=== PATIENT | female | born 1970 | race Caucasian/White ===

== ENCOUNTER → 2018-10-29 | Outpatient (CLI) | payer OTHER ==
--- NOTE | 2018-10-29 15:10 | XR ---
Lumbar spine HISTORY: Trauma and pain 3 views of the lumbar spine Lumbar vertebral bodies show preserved height and alignment. There is loss of disc height at interver tebral levels especially L4-5, there is associated spondylosis. Sclerosis present in the posterior el ements. IMPRESSION: No acute fracture or subluxation. Degenerative disc disease. Lumbar MRI may benefit.
== END | disposition home or self-care (01) ==
LOC: RADXRMAIN 13:03
PROVIDERS: ATTEND Emergency Medicine
DX: M51.36 Other intervertebral disc degeneration, lumbar region (principal)
CPT/HCPCS: 72100

== ENCOUNTER 2020-07-24 21:27 | Inpatient (IN) | payer OTHER ==
[2020-07-24] MEDS ORDERED: SODIUM CHLORIDE 0.9% 1,000 ML IV ONE (22:21)
[2020-07-24] MEDS ORDERED: METOCLOPRAMIDE 5 MG/ML 2 ML VIAL IVP STA (22:23)
[2020-07-24] MEDS ORDERED: diphenhydrAMINE 50 MG/ML 1 ML VIAL IVP STA (22:23)
[2020-07-24] MEDS ORDERED: MAGNESIUM SULFATE-D5W PMX 1 GM in DEXTROSE/WATER 1 100ML.BAG IVPB ONE (22:24)
[2020-07-24] MEDS ORDERED: DEXAMETHASONE SOD PHOSPHATE 10 MG/ML 1 ML VIAL IV STA (22:24)
--- NOTE | 2020-07-24 22:24 | ED ---
General Adult HPI - General Chief complaint: Altered Mental Status Stated complaint: Confusion, Headache Time Seen by Provider: 07/24/20 21:40 Source: patient Mode of arrival: ambulatory Limitations: altered mental status - History of Present Illness Initial comments: Patient is a 49-year-old female with no reported past medical history presents to the emergency department with reported confusion. Her 2 sisters are at bedside. They state that the patient was acting confused on . The patient then reports that on Saturday she began having a headache. Today the patient sisters attempted to get a hold of her. Over the phone she did not seem like she was making any sense. They went over to her house around 2 PM and the patient had repetitive and confused questioning. They state this continued throughout the day and he didn't think to bring her to the emergency department until later. No history of this in the past. The patient denies any head trauma. She does not take any medications. Denies taking any over the counter medications. No history of drug use. Denies any fevers or chills. No neck pain or stiffness. Denies any visual changes. Denies any nausea or vomiting. No chest pain or shortness of breath. Denies abdominal pain. No weakness in her extremities. No other alleviating, precipitating or modifying factors - Related Data Previous Rx's Medication Instructions Recorded Aspirin 81 mg PO DAILY 30 Days #30 chew 07/28/20 Atorvastatin [Lipitor] 40 mg PO DAILY 30 Days #30 tab 07/28/20 Clopidogrel [Plavix] 75 mg PO DAILY 30 Days #30 tab 07/28/20 Insulin NPH Hum/Reg Insulin Hm 15 unit SQ HS 30 Days #2 vial 07/28/20 [NovoLIN 70-30 100 UNIT/ML VIAL] lisinopriL [Zestril] 10 mg PO DAILY 30 Days #30 tab 07/28/20 Allergies Allergy/AdvReac Type Severity Reaction Status Date / Time No Known Allergies Allergy Verified 07/25/20 06:37 Review of Systems ROS Statement: Those systems with pertinent positive or pertinent negative responses have been documented in the HPI. ROS Other: All systems not noted in ROS Statement are negative. Past Medical History Past Medical History: No Reported History History of Any Multi-Drug Resistant Organisms: None Reported Past Surgical History: No Surgical Hx Reported Past Psychological History: No Psychological Hx Reported Smoking Status: Current every day smoker Past Alcohol Use History: None Reported Past Drug Use History: None Reported General Exam Limitations: altered mental status General appearance: alert, in no apparent distress Head exam: Present: atraumatic, normocephalic, normal inspection Eye exam: Present: normal appearance, PERRL, EOMI. Absent: scleral icterus, conjunctival injection, periorbital swelling ENT exam: Present: normal exam, mucous membranes moist Respiratory exam: Present: normal lung sounds bilaterally. Absent: respiratory distress, wheezes, rales, rhonchi, stridor Cardiovascular Exam: Present: regular rate, normal rhythm, normal heart sounds. Absent: systolic murmur, diastolic murmur, rubs, gallop, clicks GI/Abdominal exam: Present: soft, normal bowel sounds. Absent: distended, tenderness, guarding, rebound, rigid Extremities exam: Present: normal inspection, full ROM, normal capillary refill. Absent: tenderness, pedal edema, joint swelling, calf tenderness Back exam: Present: normal inspection Neurological exam: Present: alert, other (oriented x 2. Intermittent confused re sponses. No unilateral weakness or sensory deficits. No dysarthria or expressive aphasia. ) Course Vital Signs 07/24/20 07/24/20 07/25/20 21:37 22:42 00:35 Temperature 98.5 F 98.0 F 98.0 F Pulse Rate 80 72 72 Pulse Rate [ Egg Smeller ] Respiratory 18 16 16 Rate Blood Pressure 192/82 186/78 183/79 Blood Pressure [Left Arm] O2 Sat by Pulse 97 98 96 Oximetry 07/25/20 07/25/20 07/25/20 04:00 06:45 08:00 Temperature 98.4 F 98.7 F 98 F Pulse Rate 75 86 Pulse Rate [ 90 Egg Smeller ] Respiratory 16 16 17 Rate Blood Pressure 146/82 155/77 Blood Pressure 181/102 [Left Arm] O2 Sat by Pulse 98 94 L Oximetry 07/25/20 07/25/20 12:30 16:00 Temperature Pulse Rate Pulse Rate [ 82 71 Egg Smeller ] Respiratory 18 18 Rate Blood Pressure Blood Pressure 151/111 165/116 [Left Arm] O2 Sat by Pulse 97 98 Oximetry - Reevaluation(s) Reevaluation #1: 07/25/20 00:[address] Reynoso Reevaluation #2: Spoke with Dr. Hill. Will look at images 07/25/20 00:59 Reevaluation #3: Spoke with Dr. Hill - agrees to aspirin, heparin, plavix, echo, mri with neurology consult 07/25/20 01:22 EKG Findings - EKG Comments: EKG Findings:: EKG demonstrates normal sinus rhythm with a ventricular rate 75. VT interval 154. QRS 88. QTC 446. No acute ST segment elevations or depressions concerning for ischemic changes Medical Decision Making - Medical Decision Making Upon arrival the patient was placed into room 11. A thorough history and physical exam was performed. Patient does not answer questions appropriate and therefore receives a score of 2 on NIH. Patient did demonstrate normal behavior on and therefore last known well is 4 days ago. Laboratory studies were conducted and the patient went for a CT of her brain. Chest x-ray was also performed. Laboratory studies are reviewed and demonstrates a glucose of 245. Urinalysis is positive for large leukocyte esterase and rare bacteria. CT of the patient's brain demonstrates a left posterior temporal lobe hypodensity consistent with acute or subacute infarct. I did discuss these results with the patient. She was given an aspirin and statin. I did send her back over for CT angiography which demonstrates moderate stenosis of the proximal M1 segment of the left MCA. I discussed the results with the patient and her family at bedside. I had Dr. Hill paged at this time. I discussed the case with him. He does recommend aspirin, Plavix and statin. States the patient has not a thrombectomy candidate. Recommending echo and neurology consultation. Patient will be admitted to [facility]. She remained in stable condition awaiting a bed on the floor - Lab Data Result diagrams: 07/28/20 09:35 07/28/20 09:35 Lab Results 07/24/20 07/24/20 07/24/20 Range/Units 22:36 22:36 22:36 WBC 8.6 (3.8-10.6) k/uL RBC 5.93 H (3.80-5.40) m/uL Hgb 16.4 H (11.4-16.0) gm/dL Hct 48.5 H (34.0-46.0) % MCV 81.8 (80.0-100.0) fL MCH 27.7 (25.0-35.0) pg MCHC 33.9 (31.0-37.0) g/dL RDW 12.8 (11.5-15.5) % Plt Count 215 (150-450) k/uL MPV 7.4 Neutrophils % 73 % Lymphocytes % 18 % Monocytes % 5 % Eosinophils % 2 % Basophils % 1 % Neutrophils # 6.3 (1.3-7.7) k/uL Lymphocytes # 1.5 (1.0-4.8) k/uL Monocytes # 0.4 (0-1.0) k/uL Eosinophils # 0.2 (0-0.7) k/uL Basophils # 0.1 (0-0.2) k/uL PT 9.8 (9.0-12.0) sec INR 0.9 (<1.2) APTT 23.5 (22.0-30.0) sec Sodium (137-145) mmol/L Potassium (3.5-5.1) mmol/L Chloride (98-107) mmol/L Carbon Dioxide (22-30) mmol/L Anion Gap mmol/L BUN (7-17) mg/dL Creatinine (0.52-1.04) mg/dL Est GFR (CKD-EPI)AfAm (>60 ml/min/1.73 sqM) Est GFR (CKD-EPI)NonAf (>60 ml/min/1.73 sqM) Glucose (74-99) mg/dL Estimated Ave Glu mg/dL Hemoglobin A1c (4.0-6.0) % Calcium (8.4-10.2) mg/dL Total Bilirubin (0.2-1.3) mg/dL AST (14-36) U/L ALT (4-34) U/L Alkaline Phosphatase (38-126) U/L Creatine Kinase (30-135) U/L Troponin I (0.000-0.034) ng/mL Total Protein (6.3-8.2) g/dL Albumin (3.5-5.0) g/dL TSH (0.465-4.680) mIU/L Urine Color Yellow Urine Appearance Cloudy H (Clear) Urine pH 6.0 (5.0-8.0) Ur Specific Liscomb 1.029 (1.001-1.035) Urine Protein Trace H (Negative) Urine Glucose (UA) 3+ H (Negative) Urine Ketones Negative (Negative) Urine Blood Trace H (Negative) Urine Nitrite Negative (Negative) Urine Bilirubin Negative (Negative) Urine Urobilinogen 2.0 (<2.0) mg/dL Ur Leukocyte Esterase Large H (Negative) Urine RBC 6 H (0-5) /hpf Urine WBC 7 H (0-5) /hpf Ur Squamous Epith Cells 5 H (0-4) /hpf Urine Bacteria Rare H (None) /hpf Urine Mucus Many H (None) /hpf Salicylates mg/dL Urine Opiates Screen Not Detected (NotDetected) Ur Oxycodone Screen Not Detected (NotDetected) Urine Methadone Screen Not Detected (NotDetected) Ur Propoxyphene Screen Not Detected (NotDetected) Acetaminophen ug/mL Ur Barbiturates Screen Not Detected (NotDetected) U Tricyclic Antidepress Not Detected (NotDetected) Ur Phencyclidine Scrn Not Detected (NotDetected) Ur Amphetamines Screen Not Detected (NotDetected) U Methamphetamines Scrn Not Detected (NotDetected) U Benzodiazepines Scrn Not Detected (NotDetected) Urine Cocaine Screen Not Detected (NotDetected) U Marijuana (THC) Screen Not Detected (NotDetected) Serum Alcohol mg/dL 07/24/20 07/24/20 07/24/20 Range/Units 22:36 22:36 22:36 WBC (3.8-10.6) k/uL RBC (3.80-5.40) m/uL Hgb (11.4-16.0) gm/dL Hct (34.0-46.0) % MCV (80.0-100.0) fL MCH (25.0-35.0) pg MCHC (31.0-37.0) g/dL RDW (11.5-15.5) % Plt Count (150-450) k/uL MPV Neutrophils % % Lymphocytes % % Monocytes % % Eosinophils % % Basophils % % Neutrophils # (1.3-7.7) k/uL Lymphocytes # (1.0-4.8) k/uL Monocytes # (0-1.0) k/uL Eosinophils # (0-0.7) k/uL Basophils # (0-0.2) k/uL PT (9.0-12.0) sec INR (<1.2) APTT (22.0-30.0) sec Sodium 132 L (137-145) mmol/L Potassium 4.2 (3.5-5.1) mmol/L Chloride 106 (98-107) mmol/L Carbon Dioxide 22 (22-30) mmol/L Anion Gap 4 mmol/L BUN 11 (7-17) mg/dL Creatinine 0.45 L (0.52-1.04) mg/dL Est GFR (CKD-EPI)AfAm >90 (>60 ml/min/1.73 sqM) Est GFR (CKD-EPI)NonAf >90 (>60 ml/min/1.73 sqM) Glucose 245 H (74-99) mg/dL Estimated Ave Glu mg/dL 292 Hemoglobin A1c 11.8 H (4.0-6.0) % Calcium 9.0 (8.4-10.2) mg/dL Total Bilirubin 0.7 (0.2-1.3) mg/dL AST 21 (14-36) U/L ALT 25 (4-34) U/L Alkaline Phosphatase 113 (38-126) U/L Creatine Kinase 67 (30-135) U/L Troponin I <0.012 (0.000-0.034) ng/mL Total Protein 6.4 (6.3-8.2) g/dL Albumin 3.7 (3.5-5.0) g/dL TSH 1.760 (0.465-4.680) mIU/L Urine Color Urine Appearance (Clear) Urine pH (5.0-8.0) Ur Specific Liscomb (1.001-1.035) Urine Protein (Negative) Urine Glucose (UA) (Negative) Urine Ketones (Negative) Urine Blood (Negative) Urine Nitrite (Negative) Urine Bilirubin (Negative) Urine Urobilinogen (<2.0) mg/dL Ur Leukocyte Esterase (Negative) Urine RBC (0-5) /hpf Urine WBC (0-5) /hpf Ur Squamous Epith Cells (0-4) /hpf Urine Bacteria (None) /hpf Urine Mucus (None) /hpf Salicylates <1.0 mg/dL Urine Opiates Screen (NotDetected) Ur Oxycodone Screen (NotDetected) Urine Methadone Screen (NotDetected) Ur Propoxyphene Screen (NotDetected) Acetaminophen <10.0 ug/mL Ur Barbiturates Screen (NotDetected) U Tricyclic Antidepress (NotDetected) Ur Phencyclidine Scrn (NotDetected) Ur Amphetamines Screen (NotDetected) U Methamphetamines Scrn (NotDetected) U Benzodiazepines Scrn (NotDetected) Urine Cocaine Screen (NotDetected) U Marijuana (THC) Screen (NotDetected) Serum Alcohol <10 mg/dL Critical Care Time Critical Care Time: Yes Critical Care Time: 32 minutes Disposition Clinical Impression: Altered mental status, CVA (cerebral vascular accident), Hyperglycemia, Hypertension Disposition: ADMITTED IP TO THIS [facility] Condition: Serious Is patient prescribed a controlled substance at d/c from ED?: No Decision to Admit Reason: Admit from EC Decision Date: 07/25/20 Decision Time: 00:26
[2020-07-24 23:14] LABS: Basophils # (A) 0.1 k/uL (0-0.2); Basophils % (A) 1 %; Eosinophils # (A) 0.2 k/uL (0-0.7); Eosinophils % (A) 2 %; HCT 48.5 % (34.0-46.0); HGB 16.4 gm/dL (11.4-16.0); Lymphocytes # (A) 1.5 k/uL (1.0-4.8); Lymphocytes % (A) 18 %; MCH 27.7 pg (25.0-35.0); MCHC 33.9 g/dL (31.0-37.0); MCV 81.8 fL (80.0-100.0); Mean Platelet Volume 7.4; Monocytes # (A) 0.4 k/uL (0-1.0); Monocytes % (A) 5 %; Neutrophils # (A) 6.3 k/uL (1.3-7.7); Neutrophils % (A) 73 %; Platelet Count 215 k/uL (150-450); RBC 5.93 m/uL (3.80-5.40); RDW 12.8 % (11.5-15.5); WBC 8.6 k/uL (3.8-10.6)
[2020-07-24 23:15] LABS: INR 0.9 (<1.2); Partial Thromboplastin Time 23.5 sec (22.0-30.0); Prothrombin Time 9.8 sec (9.0-12.0)
[2020-07-24 23:22] LABS: ALT 25 U/L (4-34); AST 21 U/L (14-36); Acetaminophen <10.0 ug/mL; African American GFR (CKD) >90 (>60 ml/min/1.73 sqM); Albumin 3.7 g/dL (3.5-5.0); Alcohol <10 mg/dL; Alkaline Phosphatase 113 U/L (38-126); Anion Gap 4 mmol/L; Blood Urea Nitrogen 11 mg/dL (7-17); Carbon Dioxide 22 mmol/L (22-30); Chloride 106 mmol/L (98-107); Creatine Kinase 67 U/L (30-135); Glucose 245 mg/dL (74-99); Non-African American GFR(CKD) >90 (>60 ml/min/1.73 sqM); Potassium 4.2 mmol/L (3.5-5.1); Salicylate <1.0 mg/dL; Sodium 132 mmol/L (137-145); Total Bilirubin 0.7 mg/dL (0.2-1.3); Total Protein 6.4 g/dL (6.3-8.2)
[2020-07-24 23:23] LABS: Appearance,Urine Cloudy (Clear); Bacteria,Urine Rare /hpf; Bilirubin,Urine Negative (Negative); Blood,Urine Trace (Negative); Color,Urine Yellow; Glucose,Urine (UA) 3+ (Negative); Ketones,Urine Negative (Negative); Leukocyte Esterase,Urine Large (Negative); Mucus,Urine Many /hpf; Nitrite,Urine Negative (Negative); Protein,Urine Trace (Negative); RBC,Urine 6 /hpf (0-5); Specific Gravity,Urine 1.029 (1.001-1.035); Squamous Epithelial Cell,Urine 5 /hpf (0-4); WBC,Urine 7 /hpf (0-5)
[2020-07-24 23:24] LABS: Amphetamine Screen,Urine Not Detected (NotDetected); Barbiturate Screen,Urine Not Detected (NotDetected); Benzodiazepines Screen,Urine Not Detected (NotDetected); Cocaine Screen,Urine Not Detected (NotDetected); Methadone Screen, Urine Not Detected (NotDetected); Opiate Screen,Urine Not Detected (NotDetected); Oxycodone Screen, Urine Not Detected (NotDetected); Phencyclidine Screen,Urine Not Detected (NotDetected); Tricyclic Antidepressant,Urine Not Detected (NotDetected); Urn Cannabinoid Scrn Not Detected (NotDetected)
--- NOTE | 2020-07-24 23:31 | XR ---
EXAMINATION TYPE: XR chest 2V DATE OF EXAM: 07/24/2020 COMPARISON: NONE HISTORY: Altered mental status TECHNIQUE: FINDINGS: Heart is normal. Lungs are clear of consolidation. There are no hilar masses. There is coar sening of the interstitial markings. There is no pleural effusion. IMPRESSION: Coarse lung markings with poor inspiration. Minimal interstitial pneumonia is possible. N ormal heart. No heart failure.
--- NOTE | 2020-07-24 23:33 | CT ---
EXAMINATION TYPE: CT brain wo con DATE OF EXAM: 07/24/2020 COMPARISON: None HISTORY: AMS CT DLP: 1019.4 mGycm Automated exposure control for dose reduction was used. Ventricles have normal size. There is no midline shift. There is no sign of intracranial hemorrhage. There is triangular-shaped 4 cm area of hypodensity left posterior temporal lobe consistent with acut e or subacute infarct. The calvarium is intact. The skull base is intact. There is normal aeration of the mastoid sinuses. IMPRESSION: Left posterior temporal lobe hypodensity consistent with acute or subacute ischemic infarct. No hemor rhage.
[2020-07-24] MEDS ORDERED: ASPIRIN 325 MG TAB PO STA (23:59)
--- NOTE | 2020-07-25 00:36 | CT ---
EXAM: CT Angiography Head With Intravenous Contrast CLINICAL HISTORY: ITS.REASON CT Reason: stroke TECHNIQUE: Axial computed tomographic angiography images of the head with intravenous contrast. CTDI is 10.67 mGy and DLP is 300 mGy-cm. This CT exam was performed using one or more of the following dose reduction techniques: automated exposure control, adjustment of the mA and/or kV according to patient size, and/or use of iterative reconstruction technique. MIP reconstructed images were created and reviewed. COMPARISON: CT head 07/24/20 FINDINGS: Right internal carotid artery: No acute findings. Intracranial segment is patent with no significant stenosis. No aneurysm. Right anterior cerebral artery: Unremarkable. No occlusion or significant stenosis. No aneurysm. Right middle cerebral artery: Unremarkable. No occlusion or significant stenosis. No aneurysm. Right posterior cerebral artery: Unremarkable. No occlusion or significant stenosis. No aneurysm. Right vertebral artery: Unremarkable as visualized. Left internal carotid artery: No acute findings. Intracranial segment is patent with no significant stenosis. No aneurysm. Left anterior cerebral artery: Unremarkable. No occlusion or significant stenosis. No aneurysm. Left middle cerebral artery: Moderate stenosis of the proximal M1 segment of the left MCA. No aneurysm. Left posterior cerebral artery: Unremarkable. No occlusion or significant stenosis. No aneurysm. Left vertebral artery: Unremarkable as visualized. Basilar artery: Unremarkable. No occlusion or significant stenosis. No aneurysm. Brain: Redemonstrated left parietal lobe hypodensity compatible with acute/subacute infarct. IMPRESSION: 1. Moderate stenosis of the proximal M1 segment of the left MCA. 2. Otherwise patent intracranial circulation. 3. Redemonstrated acute/subacute left parietal lobe infarct. EXAM: CT Angiography Neck With Intravenous Contrast CLINICAL HISTORY: ITS.REASON CT Reason: stroke TECHNIQUE: Axial computed tomographic angiography images of the neck with intravenous contrast. CTDI is 10 mGy and DLP is 312.8 mGy-cm. This CT exam was performed using one or more of the following dose reduction techniques: automated exposure control, adjustment of the mA and/or kV according to patient size, and/or use of iterative reconstruction technique. MIP reconstructed images were created and reviewed. COMPARISON: No relevant prior studies available. FINDINGS: VASCULATURE: Right common carotid artery: Unremarkable. No significant stenosis. No dissection or occlusion. Right internal carotid artery: Medialization of the right internal carotid artery. Extracranial segment is patent with no significant stenosis. No dissection or occlusion. Right external carotid artery: Unremarkable. No occlusion. Right vertebral artery: Unremarkable. No significant stenosis. No dissection or occlusion. Left common carotid artery: Unremarkable. No significant stenosis. No dissection or occlusion. Left internal carotid artery: Medialization of the left internal carotid artery. Extracranial segment is patent with no significant stenosis. No dissection or occlusion. Left external carotid artery: Unremarkable. No occlusion. Left vertebral artery: Unremarkable. No significant stenosis. No dissection or occlusion. NECK: Bones/joints: No acute osseous findings. No dislocation. Soft tissues: Unremarkable soft tissues of the neck. No mass. Lung apices: Clear lung apices. CAROTID STENOSIS REFERENCE USING NASCET CRITERIA: % ICA stenosis = (1 - narrowest ICA diameter/diameter of distal cervical ICA) x 100. Mild - <50% stenosis. Moderate - 50-69% stenosis. Severe - 70-94% stenosis. Near occlusion - 95-99% stenosis. Occluded - 100% stenosis. IMPRESSION: No acute findings in the arteries of the neck.
[2020-07-25 01:06] LABS: Glucose,Whole Blood 258 mg/dL (75-99)
[2020-07-25] MEDS ORDERED: INSULIN ASPART (NovoLOG) 100 UNIT/ML VIAL SQ ONE (01:22)
[2020-07-25] MEDS: CLOPIDOGREL 75 MG TAB PO SCH ×2 (01:43→09:27)
[2020-07-25 09:14] LABS: Glucose,Whole Blood 269 mg/dL (75-99)
[2020-07-25] MEDS: INSULIN ASPART (NovoLOG) 100 UNIT/ML VIAL SQ SCH ×4 (09:27→20:47)
[2020-07-25] MEDS: ATORVASTATIN 40 MG TAB PO SCH (09:27)
--- NOTE | 2020-07-25 12:00 | ECHOF ---
Referral Reason:Thrombus MEASUREMENTS -------- HEIGHT: 152.4 cm WEIGHT: 91.2 kg BP: RVIDd: 2.5 cm (< 3.3) IVSd: 1.1 cm (0.6 - 1.1) LVIDd: 4.4 cm (3.9 - 5.3) LVPWd: 1.2 cm (0.6 - 1.1) IVSs: 1.6 cm LVIDs: 2.5 cm LVPWs: 1.4 cm Ao Diam: 2.4 cm (2.0 - 3.7) MV EXCURSION: 15.271 mm (> 18.000) MV EF SLOPE: 92 mm/s (70 - 150) EPSS: 0.1 cm MV E Srikanth: 0.59 m/s MV DecT: 177 ms MV A Sriknath: 0.71 m/s MV E/A Ratio: 0.83 RAP: 5.00 mmHg RVSP: 12.23 mmHg FINDINGS -------- Sinus rhythm. This was a techncally difficult study with suboptimal views, , Lumason utilized for enhancement of im ages. The left ventricular size is normal. There is mild concentric left ventricular hypertrophy. Overa ll left ventricular systolic function is normal with, an EF between 55 - 60 %. The right ventricle is normal in size. The left atrial size is normal. The right atrial size is normal. The aortic valve was not well visualized. The mitral valve is normal. Mild mitral regurgitation is present. The tricuspid valve appears structurally normal. Mild tricuspid regurgitation present. Right vent ricular systolic pressure is normal at < 35 mmHg. The pulmonic valve was not well visualized. The aortic root size is normal. There is no pericardial effusion. CONCLUSIONS -------- 1. This was a techncally difficult study with suboptimal views, , Lumason utilized for enhancement of images. 2. There is mild concentric left ventricular hypertrophy. 3. Overall left ventricular systolic function is normal with, an EF between 55 - 60 %. 4. The left atrial size is normal. 5. The aortic valve was not well visualized. 6. Mild mitral regurgitation is present. 7. Mild tricuspid regurgitation present. 8. There is no pericardial effusion. JEWEL SETTER: Nicole May RDCS
[2020-07-25 12:30] LABS: Hemoglobin A1C 11.8 % (4.0-6.0)
[2020-07-25 13:20] LABS: Glucose,Whole Blood 310 mg/dL (75-99)
[2020-07-25] MEDS ORDERED: LORazepam 2 MG/ML INJ IV PRN (13:50)
[2020-07-25] MEDS ORDERED: TEMAZEPAM 15 MG CAP PO PRN (13:50)
[2020-07-25] MEDS ORDERED: HYDROcodone/APAP 5-325MG 1 EACH TAB PO PRN (13:50)
--- NOTE | 2020-07-25 14:46 | P.CNNES ---
History of Present Illness Consult date: 07/25/20 Requesting physician: Manda Hernandez Reason for Consult: Stroke seen on CT head: left temporal History of Present Illness: This is a 49-year-old woman with no medical history that presented to the emergency department on 07/24/2020 at around 21:27 for confusion. Patient is unable to provide history because of the her a fees via therefore history was obtained by the patient's sister was at bedside. Per the patient's sister on the 2019 the patient was complaining of headache but the the sister does not know where the headache was she was the the patient was just complaining of a headache. No nausea no vomiting. Then on 07/24/2020 around 1 PM the patient was having difficulty getting her words out, repeating herself and that seemed confused for the sister. Last normal seen was around 07/24/2020 at 12:05 AM. Patient does not have any similar episodes in the past like this. Per the sister she just having difficulty getting her words out and the she didn't notice any weakness. There is no head trauma recently. She does smoke 1 pack a day for the last 30 years. Rarely drinks alcohol. She sees primary care physician time to time. Otherwise she is not on any medication because she doesn't see a physician for the most part. She's also been on any [id number] medication. Mother does have history of stroke at the age of 52 because of atrial fibrillation. Upon seeing the patient the patient just frustrated that she can get her words out. Workup in the hospital consisted of: Initial vitals: Blood pressure of 192/82, heart rate of 80, respiratory of 18, temperature of 98.5 Fahrenheit oral and pulse ox of 97% at room air. CT of the head was reported as left posterior temporal lobe hypodensity consistent with acute or subacute ischemic infarct. No hemorrhage. I personally reviewed that a CT of the head and I felt the hypodensity was more subacute. CT angiography of the head and neck is reported as: No acute finding in the arteries of the neck. While the CT of the head was reported as moderate stenosis of the proximal M1 segment of the left MCA. Otherwise patient intracr anial circulation. Redemonstrated acute/subacute left parietal lobe infarct. EKG was reported as normal sinus rhythm. Ventricle rate of 75. Normal EKG. Patient received NIH of a 2 in the ED for not answering questions appropriately. Patient did not receive TPA since that she was outside the window. The ED spoke with the stroke team (Dr. Hill) and he did not feel that the patient that was a candidate for thrombectomy. He recommended aspirin, Plavix and statin. 2-D echo was reported as mild concentric left ventricular hypertrophy. Ejection fraction between 55 and 50%. Left atrial size is normal. CXR: Course lung marking with poor inspiration. Minimal insertional pneumonia as possible. Normal heart. Normal heart failure. Review of Systems Review of system is limited because of patient condition but the prone positive and negative as per HPI. Past Medical History Past Medical History: No Reported History History of Any Multi-Drug Resistant Organisms: None Reported Past Surgical History: No Surgical Hx Reported Past Psychological History: No Psychological Hx Reported Smoking Status: Current every day smoker Past Alcohol Use History: None Reported Past Drug Use History: None Reported Medications and Allergies Home Medications Medication Instructions Recorded Confirmed Type No Known Home Medications 07/25/20 07/25/20 History Allergies Allergy/AdvReac Type Severity Reaction Status Date / Time No Known Allergies Allergy Verified 07/25/20 06:37 Physical Examination - Vital Signs Vital Signs: Vital Signs Temp Pulse Pulse Resp BP BP Pulse Ox 07/25/20 08:00 98 F 90 17 181/102 94 L 07/25/20 06:45 98.7 F 86 16 155/77 07/25/20 04:00 98.4 F 75 16 146/82 98 07/25/20 00:35 98.0 F 72 16 183/79 96 07/24/20 22:42 98.0 F 72 16 186/78 98 07/24/20 21:37 98.5 F 80 18 192/82 97 Intake and Output 07/24/20 07/25/20 07/25/20 22:59 06:59 14:59 Other: Weight 91.716 kg 91.716 kg GENERAL: The patient is lying in bed and frustrated with her condition. CHEST: The heart rate is regular rate rhythm. No murmurs to auscultation. No carotid bruit bilaterally. LUNG: Clear to auscultation bilaterally no wheezing noted throughout. Not labored breathing. ABDOMEN/GI: Bowel sounds present in all 4 quadrants. No tenderness to palpation throughout. NEUROLOGICAL: Limited because of her cooperation. Higher mental function: The patient is awake, alert, oriented to self. Had a hard time getting answers regarding the the place and time. Patient is able to identify objects such as a cup but upon showed her my watch she stated this time and upon asking her a different objects such as a pen she said it's time. Patient has a predominantly motor aphasia. Has paraphasic error as well as preservation. No neglect. Cranial nerves: The pupils are round, equal, 3-4mm and reactive to light. Visual quinn could not assess because of patient's cooperation. Extraocular movement is intact no nystagmus is noted. The facial strength is normal throughout. Tongue is midline and moved [id number] without any difficulty. No dysarthria is noted. Shoulder shrug is normal bilaterally. Motor: Gait is normal with normal arm swings. The strength is 5 over 5 throughout. Normal tone and bulk. Cerebellum: Normal finger to nose bilaterally. Sensation: Sensation is normal to touch throughout. Reflexes (right/left): 2+ throughout except ankles could not assess because patient's refusal to remove her shoes. Plantars: Unable to assess because refusal to remove her shoes. Results Sodium was 132. POC glucose is in the range of 250s to 310. Hemoglobin A1c is 11.8. Calcium Zyprexa 0. AST is 21 and ALTs 25. TSH is 1.76. Urine drug screen was negative and a serum alcohol was less than 10 the barbiturates was less than 10 salicylate was less than 1. Urine analysis the urine looks appears cloudy, nitrate was negative, leukocyte esterase large urine white blood cell is 7 urine bacteria was rare. - Laboratory Findings CBC and BMP: 07/24/20 22:36 07/24/20 22:36 Abnormal Lab Findings: Abnormal Labs 07/24/20 07/24/20 07/24/20 22:36 22:36 22:36 RBC 5.93 H Hgb 16.4 H Hct 48.5 H Sodium 132 L Creatinine 0.45 L Glucose 245 H POC Glucose (mg/dL) Hemoglobin A1c Urine Appearance Cloudy H Urine Protein Trace H Urine Glucose (UA) 3+ H Urine Blood Trace H Ur Leukocyte Esterase Large H Urine RBC 6 H Urine WBC 7 H Ur Squamous Epith Cells 5 H Urine Bacteria Rare H Urine Mucus Many H 07/24/20 07/25/20 07/25/20 22:36 01:04 09:12 RBC Hgb Hct Sodium Creatinine Glucose POC Glucose (mg/dL) 258 H 269 H Hemoglobin A1c 11.8 H Urine Appearance Urine Protein Urine Glucose (UA) Urine Blood Ur Leukocyte Esterase Urine RBC Urine WBC Ur Squamous Epith Cells Urine Bacteria Urine Mucus Assessment and Plan Assessment: This a 49-year-old woman with no medical history that presented to the emergency department on 07/24/2020 at around 21:27 repeating herself, not making sense since 07/24/2020 noticed by family at 1pm (last normal seen was on 07/24/20 at 12:05am). NIH of a 2 on presented to the hospital for not answering questions appropriately. Patient did not receive IV TPA since outside the window. CT of the head was reported as moderate stenosis of the proximal M1 segment of the left MCA but not intervention per stroke team. There is a family history of stroke (mother at age of 52 and she had atrial fibrillation). Aphasia (Motor) due to Left occipital subacute stroke. Unable to assess if visual field are effected because lack of cooperation. Newly Diagnosed diabetes mellitus (HbA1c: 11.8) Newly diagnosed hypertension Tobacco use (1 PPD for 30 years) Plan: * CT of the head was reported as left posterior temporal lobe hypodensity consistent with acute or subacute ischemic infarct. No hemorrhage. I personally reviewed that a CT of the head and I felt the hypodensity was more subacute. * CT angiography of the head and neck is reported as: No acute finding in the arteries of the neck. While the CT of the head was reported as moderate stenosis of the proximal M1 segment of the left MCA. Otherwise patient intracranial circulation. Redemonstrated acute/subacute left parietal lobe infarct. * There is no need for MRI brain since stroke is seen on CT head. * 2-D echo was reported as mild concentric left ventricular hypertrophy. Ejection fraction between 55 and 50%. Left atrial size is normal. * Currently on aspirin 325 daily and the Plavix 75 mg daily we'll continue to dual antiplatelets for 21 days then the patient will discontinue Plavix but will continue aspirin indefinitely. Continue Lipitor 40 mg daily. * PT/OT and [facility] RO[facility] are consulted * Lipid panel is pending. * TSH: 1.76 (normal). * Continue every 4 neuro checks. * Consulted cardiology for STEPH. * IF STEPH does not show thrombus or significant PFO then recommend loop recorder. * Patient was counseled on tobacco cessation. * We'll defer the management of diabetes and hypertension to the primary team. Plan we'll discussed with the patient's history was at bedside. Thank Your for the consultation. Jerome Franco MD Neuro-Hospitalist Time with Patient: Greater than 30
--- NOTE | 2020-07-25 15:06 | HP ---
HISTORY AND PHYSICAL DATE OF SERVICE: 07/25/2020 CHIEF COMPLAINT: Headache, change in mental status, confusion. HISTORY OF PRESENT ILLNESS: This is a 49-year-old woman who had a past medical history of nausea, medical issues, not being followed in the primary physician in the outpatient setting and presented with headache and confusion. According to the sister, the patient was 7 having confusion on Thanksgiving. The patient also had severe headache, which is felt in the frontal area and as well as the top of the head. The sister found that over the phone, the patient is not making any sense. The patient was taken to [facility] and was admitted because the patient was repetitive. Currently, patient is rather upset with the fact that the patient has to be in the ER and the patient admitted for further evaluation and treatment. In the ER, there is no evidence of any contact with any COVID- 19 positive patient. Patient works in a factory and the ER evaluation showed hemoglobin 16.4, sodium 132 and glucose was elevated 245 to 258 and hemoglobin A1c is 7.8. UA shows evidence of some UTI and drug screen is negative. The patient also apparently recently started a factory job and the patient does not have any in service at this time, apparently. PAST MEDICAL HISTORY: History of nausea and no other medical issues, otherwise. History of smoking. MEDICATIONS: None. ALLERGIES: None. FAMILY HISTORY: No history of heart disease or strokes in the family. SOCIAL HISTORY: History of smoking. No history of substance abuse. REVIEW OF SYSTEMS: ENT: As mentioned earlier. CARDIOVASCULAR: No angina. RESPIRATORY: As mentioned earlier. GI: No nausea. : No dysuria. NERVOUS SYSTEM: No numbness or weakness. ALLERGIES/IMMUNOLOGY: No asthma or hayfever. MUSCULOSKELETAL: Ass mentioned earlier. HEMATOLOGY: No history of anemia. ENDOCRINE: As mentioned earlier. CONSTITUTIONAL: As mentioned earlier. DERMATOLOGY: Negative. RHEUMATOLOGY: Negative. PSYCHIATRY; As mentioned earlier. PHYSICAL EXAM: Patient is alert, oriented x3. Pulse 72, blood pressure 183/70, respirations 16, temperature 98 degrees, pulse ox 96% on room air. HEENT: Conjunctivae normal. NECK: No jugular venous distension. CARDIOVASCULAR: S1, S2, muffled. RESPIRATION: Breath sounds finished at the bases, a few scattered rhonchi. ABDOMEN: Soft, nontender. No mass palpable. LEGS: No edema, no swelling. NERVOUS SYSTEM: Higher functions as mentioned earlier. Moves all 4 limbs. No focal motor or sensory deficit. LYMPHATICS: No lymph node enlargement in the neck or axillae. SKIN: No ulcer, no rash or bleeding. JOINTS: No active deformity or arthropathy. LABS: At this time shows WBC 8.2, hemoglobin 16.4, sodium 132. Other labs are noted. CT scan of the brain, which was personally reviewed by me, showed left posterior temporal lobe hypodensity consistent with acute ischemic infarct. ASSESSMENT: 1. Severe headache for evaluation, possibly left posterior temporal lobe hypodensity and acute stroke. 2. Rule out hep C plus encephalitis. 3. Diabetes mellitus type, new onset uncontrolled with hyperglycemia. 4. Hyponatremia. 5. Increased hemoglobin. 6. Possible urinary tract infection. 7. History of nicotine dependence. 8. Change in mental status, possible acute toxic metabolic encephalopathy. 9. Obesity. 10.FULL CODE. RECOMMENDATION: In this 49-year-old woman who presented with multiple complex medical issues, will monitor the patient closely, continue with the current symptomatic treatment. Neurology evaluation. Recommend lumbar puncture and further evaluation. I would also recommend MRI of the brain with contrast also. Otherwise empiric acyclovir. Infectious Disease evaluation. Guarded prognosis and rule out other cause of viral meningitis as well. COVID-19 will be tested. Prognosis guarded because of multiple complex medical issues. Further recommendations. Will also recommend the patient follow up closely with the primary physician in the outpatient setting after discharge also. The patient at this time understands and agrees as COVID-19 test also has been requested. Further recommendations. Neurology will be consulted. MMODL / IJN: [id number] /
[2020-07-25 15:23] LABS: C Reactive Protein 16.3 mg/L (<10.0)
[2020-07-25] MEDS: PANTOPRAZOLE 40 MG/10 ML VIAL IVP SCH (16:38)
[2020-07-25] MEDS: HEPARIN SODIUM,PORCINE 5,000 UNIT/ML 1 ML VIAL SQ SCH ×2 (16:42→20:47)
[2020-07-25] MEDS: INSULIN DETEMIR (LEVEMIR) 100 UNIT/ML SYR SQ SCH (16:42)
[2020-07-25 17:46] LABS: Glucose,Whole Blood 167 mg/dL (75-99)
[2020-07-25 20:40] LABS: Glucose,Whole Blood 213 mg/dL (75-99)
[2020-07-25] MEDS: ASPIRIN 325 MG TAB PO SCH (23:33)
[2020-07-25] MEDS: ALPRAZolam 0.25 MG TAB PO PRN (23:33)
[2020-07-26 00:50] LABS: Anti-DNA, DS unit <1.0 IU/mL; DNA Double-Stranded NEGATIVE (NEGATIVE)
--- NOTE | 2020-07-26 03:33 | CONS ---
CONSULTATION DATE OF SERVICE: 07/25/2020 REASON FOR CONSULTATION: Meningitis. HISTORY OF PRESENT ILLNESS: The patient is a 49-year-old female presenting to the hospital with a chief complaint of headache which has been mostly frontal in the area and difficulty finding wounds and some mental status changes and confusion. The history was mostly provided by the patient's sister with no reported history of any fever or any chills. The patient said it has been going on since Saturday and the patient was not making any sense to the family. The patient describes the headache to be more in the frontal area, more of a throbbing, almost 10 out of 10 in severity. The patient denies having any photophobia. No nausea, no vomiting. She is aware that she is at [facility] and denies having any chest pain. No shortness of breath or cough. No nausea, no vomiting. No abdominal pain or diarrhea. With these symptoms the patient was evaluated by the ER physician. On arrival to the ER, the patient has been afebrile. Patient has a saturation 97% to 98% on room air. The patient did have a normal white count with no left shift. D-dimer was negative. CRP only 16.3. Urine was mildly positive. However, the patient did not have any urinary symptoms. Urine drug screen was negative. Treviño PCR was negative. The patient did have a chest x-ray that was read coarse lung markings with poor inspiration. The patient did have significant elevated blood pressure on presentation to the hospital, 192/82. Infectious Disease was consulted for concern for meningitis in this patient with no fever, no elevated white count. REVIEW OF SYSTEMS: Positive points have been mentioned in HPI. Rest of the systems are negative. PAST MEDICAL HISTORY: No major illnesses. PAST SURGICAL HISTORY: No surgeries. SOCIAL HISTORY: Currently a smoker. No drinking or drug use. FAMILY HISTORY: No pertinent findings noticed. ALLERGIES: No known drug allergies. MEDICATIONS: Medications include the patient is currently on [place], Xanax, aspirin, Lipitor, Plavix, heparin, NovoLog, Levemir, Ativan, nicotine patch, Protonix, Restoril. PHYSICAL EXAMINATION: Blood pressure 147/101, pulse of 63, temperature 98.3. She is 95% on room air. General description is a middle-aged female up in the chair in no distress. HEENT EXAMINATION: No pallor or scleral icterus. Oral mucous membrane is dry. NECK: Tracheal central. No thyromegaly. LUNGS: Unlabored breathing, clear to auscultation anteriorly. No wheeze or crackle. HEART: S1, S2. Regular rate and rhythm. ABDOMEN: Soft, no tenderness. No guarding or rigidity. EXTREMITIES: No edema of feet. SKIN EXAMINATION: No rash or mass palpable. NEUROLOGICALLY: Patient is awake, alert, oriented x3. No neck rigidity. LABS: Hemoglobin 16.4, white count 8.6, BUN of 11, creatinine 0.45. Electrolytes have been normal. Liver enzymes are normal. Urine is positive. The patient has no urinary symptoms. DIAGNOSTIC IMPRESSION: 1. Patient presented to the hospital with a headache could be more likely related to hypertensive encephalopathy in this patient who did have significantly elevated blood pressure with no history of blood pressure in outpatient setting and not on any medication. Clinically doubt meningitis in this patient with no fever, no elevated white count, no neck rigidity. The patient does not look toxic. 2. Positive UA. No urinary symptoms, likely asymptomatic . PLAN: 1. No need for LP or systemic antibiotic therapy. 2. Infectious Disease will sign off. Please call back if any questions regarding infectious disease care. MMODL / IJN: [id number] /
[2020-07-26 06:24] LABS: Glucose,Whole Blood 227 mg/dL (75-99)
[2020-07-26] MEDS: INSULIN ASPART (NovoLOG) 100 UNIT/ML VIAL SQ SCH ×4 (06:39→20:47)
[2020-07-26 07:58] LABS: Basophils # (A) 0.1 k/uL (0-0.2); Basophils % (A) 1 %; Eosinophils # (A) 0.2 k/uL (0-0.7); Eosinophils % (A) 2 %; HCT 47.4 % (34.0-46.0); HGB 15.9 gm/dL (11.4-16.0); Lymphocytes # (A) 2.6 k/uL (1.0-4.8); Lymphocytes % (A) 26 %; MCH 27.8 pg (25.0-35.0); MCHC 33.5 g/dL (31.0-37.0); MCV 83.1 fL (80.0-100.0); Mean Platelet Volume 7.5; Monocytes # (A) 0.4 k/uL (0-1.0); Monocytes % (A) 4 %; Neutrophils # (A) 6.5 k/uL (1.3-7.7); Neutrophils % (A) 66 %; Platelet Count 241 k/uL (150-450); RDW 12.9 % (11.5-15.5); WBC 9.8 k/uL (3.8-10.6)
[2020-07-26 08:06] LABS: African American GFR (CKD) >90 (>60 ml/min/1.73 sqM); Anion Gap 6 mmol/L; Blood Urea Nitrogen 23 mg/dL (7-17); Calcium 8.8 mg/dL (8.4-10.2); Carbon Dioxide 24 mmol/L (22-30); Chloride 105 mmol/L (98-107); Cholesterol 202 mg/dL (<200); Glucose 220 mg/dL (74-99); HDL Cholesterol 35 mg/dL (40-60); LDL Cholesterol,Calculated 119 mg/dL (0-99); Non-African American GFR(CKD) >90 (>60 ml/min/1.73 sqM); Potassium 3.5 mmol/L (3.5-5.1); Sodium 135 mmol/L (137-145); Triglycerides 241 mg/dL (<150)
[2020-07-26] MEDS: PANTOPRAZOLE 40 MG/10 ML VIAL IVP SCH (08:48)
[2020-07-26] MEDS: CLOPIDOGREL 75 MG TAB PO SCH (08:48)
[2020-07-26] MEDS: lisinopriL 10 MG TAB PO SCH (08:48)
[2020-07-26] MEDS: ATORVASTATIN 40 MG TAB PO SCH (08:48)
[2020-07-26] MEDS: ASPIRIN 325 MG TAB PO SCH (08:48)
[2020-07-26] MEDS: HEPARIN SODIUM,PORCINE 5,000 UNIT/ML 1 ML VIAL SQ SCH ×2 (08:49→20:47)
[2020-07-26] MEDS: NICOTINE 14MG/24HR PATCH TRANSDERM SCH (08:49)
--- NOTE | 2020-07-26 10:48 | P.PN ---
Subjective Progress Note Date: 07/26/20 Patient was seen at bedside and the she stated that the she feels about the same. Per the patient nurse the she continues to be difficult because of her cooperation and the patient gets frustrated that very easily. Otherwise no new weakness, numbness. Denies any nausea or vomiting. Objective - Vital Signs Vital signs: Vital Signs Temp 98.4 F 07/26/20 08:45 Pulse 77 07/26/20 08:45 Resp 18 07/26/20 08:45 BP 147/83 07/26/20 08:45 Pulse Ox 94 L 07/26/20 08:45 Intake & Output 07/25/20 07/26/20 07/26/20 18:59 06:59 18:59 Intake Total 0 Balance 0 Weight 95 kg Intake: Oral 0 Other: Voiding Method Toilet # Voids 1 0 - Exam GENERAL: The patient is lying in bed and frustrated with her condition. CHEST: The heart rate is regular rate rhythm. No murmurs to auscultation. No carotid bruit bilaterally. NEUROLOGICAL: Limited because of her cooperation. Higher mental function: The patient is awake, alert, oriented to self and time. Patient is able to identify objects such as a cup but upon showed her my watch she stated this time and upon asking her a different objects such as a pen she said it's time. Patient has a predominantly motor aphasia. Has paraphasic error as well as preservation. No neglect. Cranial nerves: The pupils are round, equal, 3-4mm and reactive to light. Visual quinn could not assess because of patient's cooperation gain. Extraocular movement is intact no nystagmus is noted. The facial strength is normal throughout. Tongue is midline and moved [id number] without any difficulty. No dysarthria is noted. Shoulder shrug is normal bilaterally. Motor: Gait is normal with normal arm swings. The strength is 5 over 5 throughout. Normal tone and bulk. Cerebellum: Normal finger to nose bilaterally. Sensation: Sensation is normal to touch throughout. Reflexes (right/left): 2+ throughout - Labs CBC & Chem 7: 07/26/20 07:36 07/26/20 07:36 Labs: Abnormal Lab Results - Last 24 Hours (Table) 07/24/20 07/25/20 07/25/20 Range/Units 22:36 13:18 14:50 RBC (3.80-5.40) m/uL Hct (34.0-46.0) % Sodium (137-145) mmol/L BUN (7-17) mg/dL Glucose (74-99) mg/dL POC Glucose (mg/dL) 310 H (75-99) mg/dL Hemoglobin A1c 11.8 H (4.0-6.0) % C-Reactive Protein 16.3 H (<10.0) mg/L Triglycerides (<150) mg/dL Cholesterol (<200) mg/dL LDL Cholesterol, Calc (0-99) mg/dL HDL Cholesterol (40-60) mg/dL 07/25/20 07/25/20 07/26/20 Range/Units 17:44 20:39 06:23 RBC (3.80-5.40) m/uL Hct (34.0-46.0) % Sodium (137-145) mmol/L BUN (7-17) mg/dL Glucose (74-99) mg/dL POC Glucose (mg/dL) 167 H 213 H 227 H (75-99) mg/dL Hemoglobin A1c (4.0-6.0) % C-Reactive Protein (<10.0) mg/L Triglycerides (<150) mg/dL Cholesterol (<200) mg/dL LDL Cholesterol, Calc (0-99) mg/dL HDL Cholesterol (40-60) mg/dL 07/26/20 07/26/20 Range/Units 07:36 07:36 RBC 5.70 H (3.80-5.40) m/uL Hct 47.4 H (34.0-46.0) % Sodium 135 L (137-145) mmol/L BUN 23 H (7-17) mg/dL Glucose 220 H (74-99) mg/dL POC Glucose (mg/dL) (75-99) mg/dL Hemoglobin A1c (4.0-6.0) % C-Reactive Protein (<10.0) mg/L Triglycerides 241 H (<150) mg/dL Cholesterol 202 H (<200) mg/dL LDL Cholesterol, Calc 119 H (0-99) mg/dL HDL Cholesterol 35 L (40-60) mg/dL Assessment and Plan Assessment: This a 49-year-old woman with no medical history that presented to the emergency department on 07/24/2020 at around 21:27 repeating herself, not making sense since 07/24/2020 noticed by family at 1pm (last normal seen was on 07/24/20 at 12:05am). NIH of a 2 on presented to the hospital for not answering questions appropriately. Patient did not receive IV TPA since outside the window. CT of the head was reported as moderate stenosis of the proximal M1 segment of the left MCA but not intervention per stroke team. There is a family history of stroke (mother at age of 52 and she had atrial fibrillation). Aphasia (Motor) due to Left temporal subacute stroke (posterior temporal). Newly Diagnosed diabetes mellitus (HbA1c: 11.8) Newly diagnosed hypertension Tobacco use (1 PPD for 30 years) Plan: * CT of the head was reported as left posterior temporal lobe hypodensity consistent with acute or subacute ischemic infarct. No hemorrhage. I pers onally reviewed that a CT of the head and I felt the hypodensity was more subacute. I felt the patient had more agree posterotemporal subacute infarct and I felt there was a hypointensity over the left frontal region. * CT angiography of the head and neck is reported as: No acute finding in the arteries of the neck. While the CT of the head was reported as moderate stenosis of the proximal M1 segment of the left MCA. Otherwise patient intracranial circulation. Redemonstrated acute/subacute left parietal lobe infarct. * There is no need for MRI brain since stroke is seen on CT head. * Not back just having carmen day I will repeat CT of the head for today 07/26/2020 to see if there is any evolution of the stroke. * 2-D echo was reported as mild concentric left ventricular hypertrophy. Ejec tion fraction between 55 and 50%. Left atrial size is normal. * Currently on aspirin 325 daily and the Plavix 75 mg daily. Stopped Aspirin 325mg and started 81mg. Continue to dual antiplatelets for 21 days then the patient will discontinue Plavix but will continue Aspirin 81mg daily indefinitely. Continue Lipitor 40 mg daily. * PT/OT and HEAD OF MOBILE are consulted * Lipid panel: Triglyceride of 241, cholesterol is 202, LDL of 119, HDL 35. The LDL goal and the stroke is less than 90. * TSH: 1.76 (normal). * Continue every 4 neuro checks. * Consulted cardiology for STEPH. * IF STEPH does not show thrombus or significant PFO then recommend loop recorder. * Patient was counseled on tobacco cessation. * We'll defer the management of diabetes and hypertension to the primary team. Plan we'll discussed with the patient's history was at bedside. Jerome Franco MD Neuro-Hospitalist Time with Patient: Less than 30
--- NOTE | 2020-07-26 11:59 | P.CRDCN ---
History of Present Illness History of present illness: HISTORY OF PRESENTING ILLNESS This is a pleasant 49-year-old female with no documented significant past medical history. 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 The patient states she does not follow with a doctor regularly. Since admission to have been diagnosed with an acute CVA, diabetes mellitus, dyslipidemia and hypertension. We have been asked to see in consultation for STEPH. The patient presented to the hospital with symptoms of headache and confusion. CT of the brain reported left posterior temporal lobe hypodensity consistent with acute or subacute ischemic infarct. CT angiography of the head and neck reported no acute finding. The patient is seen and examined resting comfortably lying flat in bed in no acute distress. She denies symptoms of chest pain, shortness of breath, dizziness or palpitations. Prior to arrival she was taking no daily medications. Since admission she was initiated on aspirin 325 mg daily, atorvastatin 40 mg daily and Plavix 75 mg daily. Transthoracic echo reveals preserved LV systolic function with ejection fraction 55-60%, mild MR and mild TR noted. DIAGNOSTICS EKG reveals sinus mechanism heart rate [address] or T wave abnormalities noted. Telemetry tracings reveal persistent sinus mechanism. Chest xray course markings with poor inspiration and minimal interstitial pneumonia possible. Laboratory reviewed, WBC 9.8, hemoglobin 15.9, platelets 241, sodium 135, potassium 3.5, creatinine 0.67, d-dimer 0.36, LDL 119, HDL 35, TSH 1.76 and he moglobin A1c 11.8. REVIEW OF SYSTEMS At the time of my exam: CONSTITUTIONAL: Denies fever or chills. CARDIOVASCULAR: Denies chest pain, shortness of breath, orthopnea, PND or palpitations. RESPIRATORY: Denies cough. GASTROINTESTINAL: Denies abdominal pain, diarrhea, constipation, nausea or vomiting. MUSCULOSKELETAL: Denies myalgias. NEUROLOGIC: Denies numbness, tingling or weakness. ENDOCRINE: Denies fatigue, weight change, polydipsia or polyurina. GENITOURINARY: Denies burning, hematuria or urgency with micturation. HEMATOLOGIC: Denies history of anemia or bleeding. PHYSICAL EXAMINATION Blood pressure 147/83 heart rate 77 afebrile and maintaining oxygen saturation on room air. CONSTITUTIONAL: No apparent distress. HEENT: Head is normocephalic. Pupils are equal, round. Sclerae anicteric. Mucous membranes of the mouth are moist. No JVD. No carotid bruit. CHEST EXAMINATION: Lungs are clear to auscultation. No chest wall tenderness is noted on palpation or with deep breathing. HEART EXAMINATION: Regular rate and rhythm. S1, S2 heard. Soft systolic ejection murmur at the left sternal border, no gallops or rub. ABDOMEN: Soft, nontender. Positive bowel sounds. EXTREMITIES: 2+ peripheral pulses, no lower extremity edema and no calf tenderness. NEUROLOGIC EXAMINATION: Patient is awake, alert and oriented x3. ASSESSMENT Acute CVA Diabetes mellitus Hypertension Dyslipidemia Chronic nicotine dependence PLAN Initiate lisinopril 10 mg daily for optimal blood pressure control. Proceed with STEPH tomorrow. Procedure, risks and benefits explained to the patient in great detail. She is agreeable. She will be NPO after midnight tonight. Continue telemetry monitoring. We will also apply a 30-day event monitor upon discharge to assess for atrial fibrillation. Thank you kindly for this consultation. Nurse Practitioner note has been reviewed, I agree with a documented findings and plan of care. Patient was seen and examined. Past Medical History Past Medical History: No Reported History History of Any Multi-Drug Resistant Organisms: None Reported Past Surgical History: No Surgical Hx Reported Past Psychological History: No Psychological Hx Reported Smoking Status: Current every day smoker Past Alcohol Use History: None Reported Past Drug Use History: None Reported Medications and Allergies Home Medications Medication Instructions Recorded Confirmed Type No Known Home Medications 07/25/20 07/25/20 History Allergies Allergy/AdvReac Type Severity Reaction Status Date / Time No Known Allergies Allergy Verified 07/25/20 06:37 Physical Exam Vitals: Vital Signs Temp Pulse Resp BP Pulse Ox 07/26/20 04:00 97.7 F 65 18 146/75 95 07/26/20 00:00 98.0 F 75 17 175/79 96 07/25/20 20:00 97.9 F 71 18 159/88 96 07/25/20 18:29 98.3 F 63 18 147/101 95 07/25/20 16:00 71 18 165/116 98 07/25/20 12:30 82 18 151/111 97 Intake and Output 07/25/20 07/26/20 07/26/20 22:59 06:59 14:59 Intake Total 0 Balance 0 Intake: Oral 0 Other: # Voids 1 0 Weight 95 kg Results 07/26/20 07:36 07/26/20 07:36 Cardiac Enzymes 07/25/20 Range/Units 14:50 Lactate Dehydrogenase 613 (313-618) U/L CBC 07/26/20 Range/Units 07:36 WBC 9.8 (3.8-10.6) k/uL RBC 5.70 H (3.80-5.40) m/uL Hgb 15.9 (11.4-16.0) gm/dL Hct 47.4 H (34.0-46.0) % Plt Count 241 (150-450) k/uL Current Medications Generic Name Dose Route Start Last Admin Trade Name Freq PRN Reason Stop Dose Admin Hydrocodone Bitart/Acetaminophen 1 each 07/25/20 13:50 Hydrocodone/Apap 5-325mg 1 Each Tab PO Q6HR PRN Pain Alprazolam 0.25 mg 07/25/20 13:50 07/25/20 23:33 Alprazolam 0.25 Mg Tab PO 0.25 mg TID PRN Administration Anxiety Aspirin 325 mg 07/26/20 00:27 07/25/20 23:33 Aspirin 325 Mg Tab PO 325 mg DAILY DAXA Administration Atorvastatin Calcium 40 mg 07/25/20 09:00 07/25/20 09:27 Atorvastatin 40 Mg Tab PO 40 mg DAILY DAXA Administration Clopidogrel Bisulfate 75 mg 07/25/20 01:30 07/25/20 09:27 Clopidogrel 75 Mg Tab PO 75 mg DAILY DAXA Administration Heparin Sodium (Porcine) 5,000 unit 07/25/20 14:00 07/25/20 20:47 Heparin Sodium,Porcine 5,000 Unit/Ml 1 Ml Vial SQ 5,000 unit Q12HR DAXA Administration Insulin Aspart 0 unit 07/25/20 09:16 07/26/20 06:39 Insulin Aspart (Novolog) 100 Unit/Ml Vial SQ 3 unit ACHS DAXA Administration Protocol Insulin Detemir 15 unit 07/25/20 13:54 07/25/20 16:42 Insulin Detemir (Levemir) 100 Unit/Ml Syr SQ 15 unit HS DAXA Administration Lisinopril 10 mg 07/26/20 09:00 Lisinopril 10 Mg Tab PO DAILY DAXA Lorazepam 1 mg 07/25/20 13:50 Lorazepam 2 Mg/Ml Inj IV Q6HR PRN Anxiety Nicotine 1 patch 12/01/20 09:00 Nicotine 14mg/24hr Patch TRANSDERM DAILY DAXA Pantoprazole Sodium 40 mg 07/25/20 14:00 07/25/20 16:38 Pantoprazole 40 Mg/10 Ml Vial IVP Not Given DAILY DAXA Temazepam 15 mg 07/25/20 13:50 Temazepam 15 Mg Cap PO HS PRN Insomnia Intake and Output 07/25/20 07/26/20 07/26/20 22:59 06:59 14:59 Intake Total 0 Balance 0 Intake: Oral 0 Other: # Voids 1 0 Weight 95 kg 07/26/20 07:36 07/24/20 22:36
--- NOTE | 2020-07-26 12:00 | CT ---
EXAMINATION TYPE: CT brain wo con DATE OF EXAM: 07/26/2020 COMPARISON: CT brain 2 days ago. HISTORY: stroke over left hemisphere.Evaluate for evolution. Acute onset neuro deficit days ago. CT DLP: 2125.4 mGycm. Automated Exposure Control for Dose Reduction was Utilized. TECHNIQUE: CT scan of the head is performed without contrast. FINDINGS: There is no acute intracranial hemorrhage or midline shift identified. Persistent wedge-s haped area of low attenuation left parietal posterior watershed with sulcal effacement near axial tatianna ge 27. Some low-attenuation left frontal lobe axial image 19 redemonstrated extending inferiorly. Ve ntricles and sulci are normal in size. No extra-axial dilatation currently. The globes are intact and the visualized sinuses are clear. IMPRESSION: Persistent acute/subacute left parietal infarct. Persistent age indeterminate left fronta l lobe infarct. Suspect multifocal acute infarcts left MCA distribution. Consider MRI confirmation.
[2020-07-26 12:14] LABS: Glucose,Whole Blood 211 mg/dL (75-99)
[2020-07-26 14:14] VITALS: BMI 39.5
--- NOTE | 2020-07-26 16:55 | MR ---
EXAMINATION TYPE: MR brain wo/w con DATE OF EXAM: 07/26/2020 COMPARISON: HISTORY: speech deficiency, stroke CONTRAST: Standard multiplanar, multisequence MRI departmental protocol utilizing 10 mL intravenous Gadavist ga dolinium contrast. On the diffusion images there is 4.5 x 4 cm area of increased signal in the left posterior temporal l obe adjacent to the occipital consistent with acute infarct. There is also linear 3 x 1 cm acute infa rct in the left posterior frontal lobe cortex. There is some nodular foci of increased signal in the left posterior frontal lobe cortex consistent with additional small foci of acute infarct. There is n o midline shift. There is no evidence of intracranial hemorrhage. There is 5 mm focus of increased si gnal in the white matter adjacent to the left lateral ventricle frontal horn consistent with acute in farct. The FLAIR images show more extensive white and dawn matter foci of increased signal in the left poste rior frontal lobe and left posterior temporal lobe related to infarct. The brainstem is intact. Contrast images show no pathologic enhancement. Arterial flow is demonstrated in the left middle cere bral artery and left anterior cerebral artery. There is normal enhancement of the venous sinuses. There is mucosal thickening in the ethmoid sinus. The corpus callosum is intact. Sella turcica appear s normal. IMPRESSION: There is evidence of acute and subacute ischemic dawn and white matter infarct involving the left fro ntal lobe and the left posterior temporal lobe. No hemorrhage. Extent is not significantly different than in the CT scan earlier today 4 hours ago. Lack of enhancement is consistent with acute infarct.
[2020-07-26 17:09] LABS: Glucose,Whole Blood 196 mg/dL (75-99)
--- NOTE | 2020-07-26 17:16 | PN ---
PROGRESS NOTE DATE OF SERVICE: 07/26/2020 This 49-year-old woman was admitted with severe headache and visual difficulties also had multiple strokes including acute subacute left parietal as well as left frontal lobe infarct. Suspect multifocal acute infarcts within the left MCA distribution. MRA correlation was recommended. Patient being closely monitored. and neurology following the patient closely. Patient is mildly confused. Blood sugar is elevated. Past medical history reviewed. REVIEW OF SYSTEMS: Cardiovascular system: No angina. Respiration: As mentioned earlier. GI: As mentioned earlier. : No dysuria. Nervous System as mentioned earlier. CURRENT MEDICATIONS: Reviewed and include: Dudley, Xanax, aspirin, Lipitor, Plavix, heparin, Ativan. Habitrol. Protonix, Restoril. PHYSICAL EXAM: Patient is alert and oriented x2. Pulse 64. Blood pressure 211/143, respiration 18, temp 98 degrees, pulse ox 98% on room air. HEENT: Conjunctivae normal. NECK: No JVD. CARDIOVASCULAR: S1, S2. RESPIRATORY: Breath sounds diminished in the bases. Bilateral scattered rhonchi and crackles. ABDOMEN: Soft, obese, nontender. LEGS are no edema. No swelling. NERVOUS SYSTEM: No focal deficits. LABORATORY DATA: CBC within normal limits. Sodium 135. Accu-Cheks noted. Cholesterol noted. ASSESSMENT: 1. Severe headache with acute to subacute left parietal and as well as left frontal infarct with acute stroke. 2. Diabetes mellitus type 2, new onset with uncontrolled hypertension. 3. Hyperlipidemia. 4. Hyponatremia. 5. Increased hemoglobin. 6. Acute urinary tract infection present on admission. 7. History of nicotine dependence. 8. Change in mental status acute toxic encephalopathy secondary from stroke. 9. Obesity. 10.FULL CODE. RECOMMENDATIONS AND DISCUSSION: Recommend to continue current management and symptomatic treatment. Otherwise, at this time, antiplatelet agents. Continue the Lipitor. PT/OT evaluation. Closely follow with Neurology. Complete neurovascular workup. Blood sugar is elevated. I would also recommend hemoglobin A1c. Procalcitonin level was normal. TSH was normal. CRP 16.3, normal is less than 10. The rheumatoid factor and AMALIA screen were negative. The antibody and Covid-19 was also negative. Overall prognosis guarded because of multiple complex medical conditions. Further recommendations to follow. MMODL / IJN: [id number] / [facility]
[2020-07-26 20:40] LABS: Glucose,Whole Blood 213 mg/dL (75-99)
[2020-07-26] MEDS: ALPRAZolam 0.25 MG TAB PO PRN (20:47)
[2020-07-26] MEDS: INSULIN DETEMIR (LEVEMIR) 100 UNIT/ML SYR SQ SCH (20:47)
[2020-07-27 06:12] LABS: Glucose,Whole Blood 192 mg/dL (75-99)
[2020-07-27] MEDS: INSULIN ASPART (NovoLOG) 100 UNIT/ML VIAL SQ SCH ×4 (07:02→21:45)
[2020-07-27 08:19] LABS: Basophils # (A) 0.1 k/uL (0-0.2); Basophils % (A) 1 %; Eosinophils # (A) 0.2 k/uL (0-0.7); Eosinophils % (A) 3 %; HCT 46.8 % (34.0-46.0); HGB 15.9 gm/dL (11.4-16.0); Lymphocytes # (A) 1.9 k/uL (1.0-4.8); Lymphocytes % (A) 27 %; MCH 28.2 pg (25.0-35.0); MCV 82.9 fL (80.0-100.0); Mean Platelet Volume 7.1; Monocytes # (A) 0.3 k/uL (0-1.0); Monocytes % (A) 5 %; Neutrophils # (A) 4.5 k/uL (1.3-7.7); Neutrophils % (A) 64 %; Platelet Count 208 k/uL (150-450); RBC 5.65 m/uL (3.80-5.40); RDW 12.8 % (11.5-15.5)
[2020-07-27 08:37] LABS: African American GFR (CKD) >90 (>60 ml/min/1.73 sqM); Anion Gap 6 mmol/L; Blood Urea Nitrogen 23 mg/dL (7-17); Calcium 8.7 mg/dL (8.4-10.2); Carbon Dioxide 22 mmol/L (22-30); Chloride 106 mmol/L (98-107); Glucose 210 mg/dL (74-99); Non-African American GFR(CKD) >90 (>60 ml/min/1.73 sqM); Sodium 134 mmol/L (137-145)
[2020-07-27] MEDS ORDERED: fentaNYL (PF) 50 MCG/ML 2 ML AMP ONE (09:11)
[2020-07-27] MEDS ORDERED: IV FLUID CONTINUATION 1,000 ML IV ONE (09:13)
[2020-07-27] MEDS ORDERED: SODIUM CHLORIDE 0.9% 500 ML 500 ML IV ONE (09:13)
[2020-07-27] MEDS ORDERED: fentaNYL (PF) 50 MCG/ML 2 ML AMP IV ONE (09:57)
[2020-07-27] MEDS ORDERED: MIDAZOLAM 2 MG/2 ML VIAL IV ONE ×2 (09:57→09:59)
--- NOTE | 2020-07-27 10:07 | P.TEE ---
Indications for Procedure(s): CVA Description of Procedure(s): Patient has a strong gag reflex. Patient is unable to cooperate. The procedure was abandoned. Patient did receive 1 mg of Versed and Fentanyl. Throat was sprayed with Hurricaine. Patient could not tolerate Hurricaine. Because of her strong gag reflex and placed in the pocket, the decision was abandoned. This needs to be rescheduled anesthesia, if procedure is still indicated.
[2020-07-27] MEDS: PANTOPRAZOLE 40 MG/10 ML VIAL IVP SCH (12:10)
[2020-07-27] MEDS: ATORVASTATIN 40 MG TAB PO SCH (12:11)
[2020-07-27] MEDS: HEPARIN SODIUM,PORCINE 5,000 UNIT/ML 1 ML VIAL SQ SCH ×2 (12:11→21:45)
[2020-07-27] MEDS: ASPIRIN 81 MG PO SCH (12:11)
[2020-07-27] MEDS: CLOPIDOGREL 75 MG TAB PO SCH (12:11)
[2020-07-27] MEDS: NICOTINE 14MG/24HR PATCH TRANSDERM SCH (12:11)
[2020-07-27] MEDS: lisinopriL 10 MG TAB PO SCH (12:11)
[2020-07-27] MEDS: SODIUM CHLORIDE 0.9% 1,000 ML IV SCH (12:11)
[2020-07-27 12:12] LABS: Glucose,Whole Blood 181 mg/dL (75-99)
--- NOTE | 2020-07-27 12:35 | US ---
EXAMINATION TYPE: US venous doppler duplex LE BI DATE OF EXAM: 07/27/2020 12:14 PM COMPARISON: NONE CLINICAL HISTORY: rule out dvt. Rule out DVT SIDE PERFORMED: Bilateral TECHNIQUE: The lower extremity deep venous system is examined utilizing real time linear array sonog eleazar with graded compression, doppler sonography and color-flow sonography. VESSELS IMAGED: Common Femoral Vein Deep Femoral Vein Greater Saphenous Vein * Femoral Vein Popliteal Vein Small Saphenous Vein * Proximal Calf Veins (* superficial vessels) Right Leg: no evidence of DVT Left Leg: no evidence of DVT IMPRESSION: Grayscale, color doppler, spectral doppler imaging performed of the deep veins of the lo wer extremities. There is normal flow, compressibility, vascular waveforms.
--- NOTE | 2020-07-27 12:37 | US ---
EXAMINATION TYPE: US venous doppler duplex UE DATE OF EXAM: 07/27/2020 COMPARISON: NONE CLINICAL HISTORY: rule out dvt. Pain and swelling SIDE PERFORMED: bilateral Patient of large body habitus. Right Arm: Negative for DVT Left Arm: Negative for DVT IMPRESSION: Grayscale, color doppler, spectral doppler imaging performed of the deep veins of the upper extremiti es. There is normal flow, compressability and vascular waveforms.
[2020-07-27] MEDS ORDERED: RX INFO: IV CONTRAST WAS GIVEN 1 EACH MISC MISCELLANE PRN (13:25)
--- NOTE | 2020-07-27 13:59 | P.PN ---
Subjective Progress Note Date: 07/27/20 Patient was seen at bedside and the today she was scheduled to get a transesophageal echocardiogram but unable to cooperate. She was given 1 mg of Versed and fentanyl but the procedure had to be aborted because of the lack of cooperation from the patient and it's scheduled for tomorrow per cardiology team . Patient feels about the same today compared to yesterday. Denies any further weakness or numbness. Denies any visual disturbance. Objective - Vital Signs Vital signs: Vital Signs Temp 98.2 F 07/27/20 04:00 Pulse 61 07/27/20 12:04 Resp 20 07/27/20 12:04 BP 145/86 07/27/20 12:04 Pulse Ox 97 07/27/20 12:04 Intake & Output 07/26/20 07/27/20 07/27/20 18:59 06:59 18:59 Intake Total 360 200 100 Output Total 2 Balance 358 200 100 Weight 95 kg Intake: IV 100 Oral 360 200 Output: Urine 2 Other: Voiding Method Toilet Toilet # Voids 1 1 - Exam GENERAL: The patient is lying in bed and frustrated with her condition. CHEST: The heart rate is regular rate rhythm. No murmurs to auscultation. No carotid bruit bilaterally. NEUROLOGICAL: Limited because of her cooperation. Higher mental function: The patient is awake, alert, oriented to self and time. Patient is able to identify objects such as a cup but upon showed her my watch she stated this time and upon asking her a different objects such as a pen she said it's time. Patient has a predominantly motor aphasia. Has paraphasic error as well as preservation. No neglect. Cranial nerves: The pupils are round, equal, 3-4mm and reactive to light. Visual quinn could not assess because of patient's cooperation gain. Extraocular movement is intact no nystagmus is noted. The facial strength is normal throughout. Tongue is midline and moved [id number] without any difficulty. No dysarthria is noted. Shoulder shrug is normal bilaterally. Motor: Gait is normal with normal arm swings. The strength is 5 over 5 throughout. Normal tone and bulk. Cerebellum: Normal finger to nose bilaterally. Sensation: Sensation is normal to touch throughout. Reflexes (right/left): 2+ throughout - Labs CBC & Chem 7: 07/27/20 07:40 07/27/20 07:40 Labs: Abnormal Lab Results - Last 24 Hours (Table) 07/26/20 07/26/20 07/27/20 Range/Units 17:08 20:37 06:11 RBC (3.80-5.40) m/uL Hct (34.0-46.0) % Sodium (137-145) mmol/L BUN (7-17) mg/dL Glucose (74-99) mg/dL POC Glucose (mg/dL) 196 H 213 H 192 H (75-99) mg/dL 07/27/20 07/27/20 07/27/20 Range/Units 07:40 07:40 12:10 RBC 5.65 H (3.80-5.40) m/uL Hct 46.8 H (34.0-46.0) % Sodium 134 L (137-145) mmol/L BUN 23 H (7-17) mg/dL Glucose 210 H (74-99) mg/dL POC Glucose (mg/dL) 181 H (75-99) mg/dL Assessment and Plan Assessment: This a 49-year-old woman with no medical history that presented to the emergency department on 07/24/2020 at around 21:27 repeating herself, not making sense since 07/24/2020 noticed by family at 1pm (last normal seen was on 07/24/20 at 12:05am). NIH of a 2 on presented to the hospital for not answering questions appropriately. Patient did not receive IV TPA since outside the window. CT of the head was reported as moderate stenosis of the proximal M1 segment of the left MCA but not intervention per stroke team. There is a family history of stroke (mother at age of 52 and she had atrial fibrillation). 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 No hemorrhage. I personally reviewed that a CT of the head and I felt the hypodensity was more subacute. I felt the patient had more agree posterotemporal subacute infarct and I felt there was a hypointensity over the left frontal region. * CT angiography of the head and neck is reported as: No acute finding in the arteries of the neck. While the CT of the head was reported as moderate stenosis of the proximal M1 segment of the left MCA. Otherwise patient intracranial circulation. Redemonstrated acute/subacute left parietal lobe infarct. * MR the brain was ordered by the primary team and that showed that there is evidence of acute and subacute ischemic dawn and white matter infarct involving the left frontal lobe and left posterior temporal lobe. No hemorrhage at. Extended is not significant different than in the CT earlier today 4 hours ago. Lack of enhancement is consistent with acute infarct. * 2-D echo was reported as mild concentric left ventricular hypertrophy. Ejection fraction between 55 and 50%. Left atrial size is normal. * Currently on aspirin 325 daily and the Plavix 75 mg daily. Stopped Aspirin 325mg and started 81mg. Continue to dual antiplatelets for 21 days then the patient will discontinue Plavix but will continue Aspirin 81mg daily indefinitely. Continue Lipitor 40 mg daily. * PT/OT and CODING TECHNICIAN are consulted * Lipid panel: Triglyceride of 241, cholesterol is 202, LDL of 119, HDL 35. The LDL goal and the stroke is less than 90. * TSH: 1.76 (normal). * Continue every 4 neuro checks. * Consulted cardiology for STEPH. They attempted to provide today on the successful because of the lack of cooperation from the patient and is scheduled for 07/28/2020. * IF STEPH does not show thrombus or significant PFO then event monitor and then a loop recorder as an insurance. * I ordered that CT of the brain with rule out's venous sinus thrombosis. * Venous duplex of the upper and lower extremities were ordered by me to rule out a DVT which the were negative. * ESR was ordered by the primary team and it was for which was in the normal limits. * CRP is 16.3 which is slightly elevated but likely to be reactive. * Ordered the factor V Leiden and anti-thrombin 3. Rest of the hypercoagulable workup but to be done as an outpatient since can be false positives as inpatient with acute stroke. * Patient was counseled on tobacco cessation. * Patient is to follow up with a neurologist upon discharge within 1-2 weeks. * We'll defer the management of diabetes and hypertension to the primary team. Plan we'll discussed with the patient. Jerome Franco MD Neuro-Hospitalist Time with Patient: Less than 30
--- NOTE | 2020-07-27 16:01 | CT ---
EXAMINATION TYPE: CT brain w con DATE OF EXAM: 07/27/2020 COMPARISON: CT 07/26/2020 HISTORY: 49-year-old female rule out venous sinus thrombosis, Headache TECHNIQUE: Contiguous axial scanning of the brain performed with IV Contrast, patient injected with 1 00 mL of Isovue 300. Coronal/sagittal reconstructions performed. CT DLP: 1099.4 mGycm Automated exposure control for dose reduction was used. FINDINGS: Redemonstrated is focal hypodensity anterior left parietal lobe and also anterior left frontal lobe. No midline shift, herniation, or extra-axial fluid collection. The superior sagittal and straight sinus is patent. The left transverse and sigmoid sinuses are asymmetrically smaller/hypoplastic but opacify. The right transverse and sigmoid sinus are patent. IMPRESSION: NO VISUALIZED DURAL VENOUS SINUS THROMBOSIS. 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 EVOLVING SUBACUTE LEFT FRONTAL AND ANTERIOR LEFT PARIETAL LOBE INFA RCTS. NO MIDLINE SHIFT.
[2020-07-27 16:28] LABS: Glucose,Whole Blood 149 mg/dL (75-99)
--- NOTE | 2020-07-27 16:42 | PN ---
PROGRESS NOTE DATE OF SERVICE: 07/27/2020 This 49-year-old woman was admitted with severe headache and extensive infarcts in the MRI. The patient was seen by multiple consultants including Dr. Franco from Neurology and complete neurovascular underway. STPEH cannot be done today. STEPH is supposed to be repeated tomorrow. MRI showed acute and subacute ischemic dawn and white matter infarct involving the left frontal lobe and as well as left posterior temporal lobe. No hemorrhage was noted. Lack of enhancement discussed with acute infarct. The patient being closely monitored at this time. PAST MEDICAL HISTORY: Reviewed. REVIEW OF SYSTEMS: CARDIOVASCULAR SYSTEM: No angina. RESPIRATORY as mentioned earlier. GI: As mentioned earlier. : No dysuria. NERVOUS SYSTEM: No numbness or weakness. CURRENT MEDICATIONS: Reviewed and include: 1. Rangely 5 mg q.6 p.r.n. 2. Xanax 0.25 t.i.d. 3. Aspirin. 4. Lipitor. 5. Plavix. 6. Heparin. 7. NovoLog. 8. Levemir. 9. Zestril. 10.Ativan p.r.n. 11.Restoril. PHYSICAL EXAM: Patient is alert, oriented x2. Pulse is 67, blood pressure 139/76, respiration is 20, temperature is normal, pulse ox 98% on room air. HEENT: Conjunctivae normal. NECK: No jugular venous distension. CARDIOVASCULAR SYSTEM: S1, S2, muffled. RESPIRATION: Breath sounds diminished at the bases, no rhonchi, no crackles. ABDOMEN: Soft, nontender. LEGS: No edema. No swelling. NERVOUS SYSTEM: No focal deficits. LABS: WBC is 7, hemoglobin is 15.2, sodium 134. BUN is 23. Accu-Cheks are noted. Otherwise, the cholesterol level is elevated, UA noted. The AMALIA screen is negative and troponin VDRL COVID-19 was also negative. ASSESSMENT: 1. Severe headache with acute stroke of the acute left frontal and left posterior temporal lobe, extensive infarcts with acute stroke. 2. Diabetes mellitus type 2 new onset with uncontrolled hypertension, uncontrolled. 3. Hypertension. 4. Hyperlipidemia. 5. Hyponatremia. 6. Increased hemoglobin. 7. Headaches. 8. Acute urinary tract infection present on admission. 9. History of nicotine dependence. 10.Change in mental status, acute toxic encephalopathy secondary to stroke. 11.Obesity. 12.FULL CODE. RECOMMENDATION: In this 49-year-old woman who presented with multiple complex medical issues, will monitor the patient closely. Continue with the current management and symptomatic treatment. Otherwise, continue with antiplatelet agents. Continue Lipitor. Follow closely with Neurology. Neurovascular workup, a STEPH, cardioembolic stroke was suspected by Neurology. I will also discuss the possibility of vasculitis with Neurology, Dr. Franco who thinks vasculitis unlikely because ESR is normal and C-reactive protein is 16.3. The overall prognosis is extremely guarded because of multiple complex medical issues. Further recommendations to follow. See orders for details. MMODL / IJN: [id number] /
[2020-07-27 21:10] LABS: Glucose,Whole Blood 154 mg/dL (75-99)
[2020-07-27] MEDS: INSULIN DETEMIR (LEVEMIR) 100 UNIT/ML SYR SQ SCH (21:44)
[2020-07-28 06:17] LABS: Glucose,Whole Blood 182 mg/dL (75-99)
[2020-07-28] MEDS: INSULIN ASPART (NovoLOG) 100 UNIT/ML VIAL SQ SCH ×3 (06:53→17:19)
[2020-07-28] MEDS ORDERED: SODIUM CHLORIDE 0.9% 1,000 ML IV ONE (08:05)
[2020-07-28] MEDS ORDERED: PROPOFOL 10 MG/ML 20 ML VIAL IV ONE (08:12)
[2020-07-28] MEDS ORDERED: BENZOCAINE SPRAY 1 CAN MUCOUS MEM ONE ×2 (08:17→08:20)
--- NOTE | 2020-07-28 08:43 | P.TEE ---
Indications for Procedure(s): CVA Date of Procedure: 07/28/20 Preoperative Diagnosis: CVA Postoperative Diagnosis: No Cardec source of emboli Description of Procedure(s): INDICATION: CVA CONSENT: . Verbal consent was obtained from the patient PROCEDURE: Patient was brought to the lab in a fasting state. She was prepped and draped in the usual fashion. Department of anesthesia provided anesthesia during the procedure. A lubricated Omni probe was introduced in the oropharynx and was advanced into the esophagus. Multiple views were obtained. Color, pulsed and continuous Doppler studies were done. Contrast bubble injection was also performed. Patient tolerated the procedure well FINDINGS: . The valvular function is grossly normal. There is trace mitral regurgitation. The aortic valve appeared to be normal. The left atrial appendage is free of any clot. The chamber sizes are within normal limits. The interatrial septum is intact without spontaneous shunt. Injection of the bubbles did not reveal any crossing of bubbles across the septum. Left ventricular function is preserved. No definite source of emboli noted from the study. Aorta is free of any plaque IMPRESSION: Normal study except mild mitral regurgitation. No PFO. No clot in left atrial appendage. No other source of emboli noted. PLAN: Look for other source of emboli. Continue current medical therapy.
[2020-07-28] MEDS ORDERED: SODIUM CHLORIDE 0.9% 1,000 ML IV SCH (08:45)
[2020-07-28] MEDS: PANTOPRAZOLE 40 MG/10 ML VIAL IVP SCH (09:20)
[2020-07-28] MEDS: ATORVASTATIN 40 MG TAB PO SCH (09:20)
[2020-07-28] MEDS: ASPIRIN 81 MG PO SCH (09:20)
[2020-07-28] MEDS: CLOPIDOGREL 75 MG TAB PO SCH (09:20)
[2020-07-28] MEDS: HEPARIN SODIUM,PORCINE 5,000 UNIT/ML 1 ML VIAL SQ SCH (09:21)
[2020-07-28] MEDS: NICOTINE 14MG/24HR PATCH TRANSDERM SCH ×2 (09:21→12:11)
[2020-07-28] MEDS: lisinopriL 10 MG TAB PO SCH (09:21)
[2020-07-28 11:04] LABS: Basophils # (A) 0.1 k/uL (0-0.2); Basophils % (A) 1 %; Eosinophils # (A) 0.2 k/uL (0-0.7); Eosinophils % (A) 3 %; HCT 49.8 % (34.0-46.0); HGB 16.9 gm/dL (11.4-16.0); Lymphocytes # (A) 1.3 k/uL (1.0-4.8); Lymphocytes % (A) 18 %; MCH 27.7 pg (25.0-35.0); MCHC 33.9 g/dL (31.0-37.0); MCV 81.7 fL (80.0-100.0); Mean Platelet Volume 7.3; Monocytes # (A) 0.5 k/uL (0-1.0); Monocytes % (A) 7 %; Neutrophils # (A) 4.7 k/uL (1.3-7.7); Neutrophils % (A) 69 %; Platelet Count 226 k/uL (150-450); RBC 6.09 m/uL (3.80-5.40); WBC 6.8 k/uL (3.8-10.6)
[2020-07-28 11:25] LABS: Glucose,Whole Blood 205 mg/dL (75-99)
[2020-07-28 11:27] LABS: African American GFR (CKD) >90 (>60 ml/min/1.73 sqM); Anion Gap 7 mmol/L; Blood Urea Nitrogen 13 mg/dL (7-17); Calcium 9.2 mg/dL (8.4-10.2); Carbon Dioxide 24 mmol/L (22-30); Chloride 105 mmol/L (98-107); Glucose 172 mg/dL (74-99); Non-African American GFR(CKD) >90 (>60 ml/min/1.73 sqM); Sodium 136 mmol/L (137-145)
[2020-07-28 11:40] LABS: Potassium 4.7 mmol/L (3.5-5.1)
[2020-07-28] MEDS: SODIUM CHLORIDE 0.9% 1,000 ML IV SCH (12:10)
[2020-07-28 12:12] VITALS: BP 143/82; PULSE 71; RESP 16; TEMP 98.4
--- NOTE | 2020-07-28 12:49 | P.PN ---
Subjective Progress Note Date: 07/28/20 The patient was seen at bedside and she stated that she's doing well. She continues to have the difficulty getting her words out or fumbling with her words. Otherwise she denies any focal weakness, numbness or visual disturbance. Today the morning the patient had a transesophageal echocardiogram and was reported as a normal study except mild mitral regurgitation. No PFO. No clot in the left atrial appendage. No other source of emboli noted. Objective - Vital Signs Vital signs: Vital Signs Temp 98.4 F 07/28/20 12:00 Pulse 71 07/28/20 12:00 Resp 16 07/28/20 12:00 BP 143/82 07/28/20 12:00 Pulse Ox 96 07/28/20 12:00 Intake & Output 07/27/20 07/28/20 07/28/20 18:59 06:59 18:59 Intake Total 100 340 Output Total 200 Balance 100 -200 340 Weight 88.6 kg Intake: IV 100 100 Oral 240 Output: Urine 200 Other: Voiding Method Toilet Toilet # Voids 1 1 2 - Exam GENERAL: The patient is lying and not in acute distress. NEUROLOGICAL: Higher mental function: The patient is awake, alert, oriented to self, place and time. Patient has a predominantly motor aphasia. Has paraphasic error as well as preservation. No neglect. Cranial nerves: The pupils are round, equal, 3-4mm and reactive to light. Visual quinn are full to confrontation.. Extraocular movement is intact no nystagmus is noted. The facial strength is normal throughout. Tongue is midline and moved [id number] without any difficulty. No dysarthria is noted. Shoulder shrug is normal bilaterally. Motor: Gait is normal with normal arm swings. The strength is 5 over 5 throughout. Normal tone and bulk. Cerebellum: Normal finger to nose bilaterally. Sensation: Sensation is normal to touch throughout. Reflexes (right/left): 2+ throughout - Labs CBC & Chem 7: 07/28/20 09:35 07/28/20 09:35 Labs: Abnormal Lab Results - Last 24 Hours (Table) 07/27/20 07/27/20 07/28/20 Range/Units 16:23 20:50 06:07 RBC (3.80-5.40) m/uL Hgb (11.4-16.0) gm/dL Hct (34.0-46.0) % Sodium (137-145) mmol/L Glucose (74-99) mg/dL POC Glucose (mg/dL) 149 H 154 H 182 H (75-99) mg/dL 07/28/20 07/28/20 07/28/20 Range/Units 09:35 09:35 11:24 RBC 6.09 H (3.80-5.40) m/uL Hgb 16.9 H (11.4-16.0) gm/dL Hct 49.8 H (34.0-46.0) % Sodium 136 L (137-145) mmol/L Glucose 172 H (74-99) mg/dL POC Glucose (mg/dL) 205 H (75-99) mg/dL Assessment and Plan Assessment: This a 49-year-old woman with no medical history that presented to the emergency department on 07/24/2020 at around 21:27 repeating herself, not making sense since 07/24/2020 noticed by family at 1pm (last normal seen was on 07/24/20 at 12:05am). NIH of a 2 on presented to the hospital for not answering questions appropriately. Patient did not receive IV TPA since outside the window. CT of the head was reported as moderate stenosis of the proximal M1 segment of the left MCA but not intervention per stroke team. There is a family history of stroke (mother at age of 52 and she had atrial fibrillation). 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 No hemorrhage. I personally reviewed that a CT of the head and I felt the hypodensity was more subacute. I felt the patient had more agree posterotemporal subacute infarct and I felt there was a hypointensity over the left frontal region. * CT angiography of the head and neck is reported as: No acute finding in the arteries of the neck. While the CT of the head was reported as moderate stenosis of the proximal M1 segment of the left MCA. Otherwise patient intracranial circulation. Redemonstrated acute/subacute left parietal lobe infarct. * MR the brain was ordered by the primary team and that showed that there is evidence of acute and subacute ischemic dawn and white matter infarct involving the left frontal lobe and left posterior temporal lobe. No hemorrhage at. Extended is not significant different than in the CT earlier today 4 hours ago. Lack of enhancement is consistent with acute infarct. * 2-D echo was reported as mild concentric left ventricular hypertrophy. Ejection fraction between 55 and 50%. Left atrial size is normal. * Currently on aspirin 325 daily and the Plavix 75 mg daily. Stopped Aspirin 325mg and started 81mg. Continue to dual antiplatelets for 21 days then the patient will discontinue Plavix but will continue Aspirin 81mg daily indefinitely. Continue Lipitor 40 mg daily. * PT/OT and LIEN SEARCHER are consulted * Lipid panel: Triglyceride of 241, cholesterol is 202, LDL of 119, HDL 35. The LDL goal and the stroke is less than 90. * TSH: 1.76 (normal). * Continue every 4 neuro checks. * STEPH: 07/28/20: Normal study except mild mitral regurgitation. No PFO. No clot in left atrial appendage. No other source of emboli noted. * Per cardiology she'll get an event monitor and then if that doesn't show any atrial fibrillation or flutter then the will be placed on a loop recorder. * CT venogram is reported as no visualized dural venous sinus thrombosis. 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 Evolving subacute left frontal and anterior left parietal lobe infarcts. No midline shift. * Venous duplex of the upper and lower extremities were ordered by me to rule out a DVT which were negative. * ESR was ordered by the primary team and it was for which was in the normal limits. * CRP is 16.3 which is slightly elevated but likely to be reactive. * Ordered the factor V Leiden and anti-thrombin 3: pending. * I ordered AMALIA which was negative, double-stranded AMALIA was negative and anti- double stranded DNA antibody is less than 1.0 which is negative. * Rest of the hypercoagulable workup but to be done as an outpatient since can be false positives as inpatient with acute stroke. * Patient was counseled on tobacco cessation. * Patient is to follow up with a neurologist upon discharge within 1-2 weeks. * Once the patient has event monitor placed from a neurology perspective no further workup is needed at this time. * We'll defer the management of diabetes and hypertension to the primary team. Plan we'll discussed with the patient. Jerome Franco MD Neuro-Hospitalist Time with Patient: Less than 30
[2020-07-28 16:38] LABS: Glucose,Whole Blood 204 mg/dL (75-99)
--- NOTE | 2020-07-29 03:49 | DS ---
DISCHARGE SUMMARY FINAL DIAGNOSES: 1. Severe headache and acute stroke from acute left frontal and left parietal temporal lobe extensive infarcts with acute stroke with possible thrombotic stroke. 2. Diabetes mellitus type 2 new onset uncontrolled. 3. Hypertension, uncontrolled. 4. Hyperlipidemia. 5. Hyponatremia. 6. Increased hemoglobin. 7. Headaches. 8. Acute urinary tract infection, present on admission. 9. History of nicotine dependence. 10.Change in mental status, acute toxic encephalopathy secondary to stroke. 11.Obesity. 12.FULL CODE. DISCHARGE DISPOSITION: The patient will be discharged in stable condition with guarded prognosis. Total time taken 35 minutes. HISTORY OF PRESENT ILLNESS: This 49-year-old woman with a past medical history of multiple medical problems admitted with features of severe headache and significant stroke was detected in the CT scan and MRI. The workup was basically negative and STEPH was also negative. A thrombotic stroke was considered. Patient treated with antiplatelet agents and rest of medications. The blood pressure and blood sugars also controlled. Dr. Franco from Neurology and multiple consultants saw the patient. Patient is cleared for discharge. On exam, vital signs are stable. CARDIOVASCULAR: S1, S2 muffled. ABDOMEN: Soft. NERVOUS SYSTEM: No focal deficits. DISCHARGE ADVICE: 1. Diet is cardiac diet. 2. Activity limited until followup. 3. Follow up with Dr. Dubois in 2-3 days. 4. Follow up with Dr. Santos in 6 weeks. 5. Follow up with Dr. Tee in one week. Medications are: 1. Ecotrin 81 mg daily. 2. Lipitor 40 mg daily. 3. Insulin NPH 15 units subcu at bedtime. 4. Plavix 75 mg p.o. daily. 5. Zestril 10 mg p.o. daily. Once again, the patient will be discharged in stable condition with guarded prognosis. MMODL / IJN: [id number] / ALISA
[2020-07-29] MEDS ORDERED: PANTOPRAZOLE 40 MG TABLET PO SCH (07:30)
== END 2020-07-28 17:50 | disposition home or self-care (01) | DRG 65 ==
LOC: EC 21:27 → 3SCARD 07-25 00:26
PROVIDERS: ADMIT Hospitalist; ATTEND Hospitalist
DX: I63.512 Cerebral infarction due to unspecified occlusion or stenosis of left middle cerebral artery (principal); N39.0 Urinary tract infection, site not specified; E87.1 Hypo-osmolality and hyponatremia; G93.49 Other encephalopathy; I11.9 Hypertensive heart disease without heart failure; R47.01 Aphasia; Z20.828 Contact with and (suspected) exposure to other viral communicable diseases; E11.65 Type 2 diabetes mellitus with hyperglycemia; Z79.4 Long term (current) use of insulin; F17.210 Nicotine dependence, cigarettes, uncomplicated; E66.9 Obesity, unspecified; R29.702 NIHSS score 2; Z68.39 Body mass index [BMI] 39.0-39.9, adult; E78.5 Hyperlipidemia, unspecified; Z71.6 Tobacco abuse counseling; Z79.82 Long term (current) use of aspirin; Z79.899 Other long term (current) drug therapy; Z79.02 Long term (current) use of antithrombotics/antiplatelets; Z71.3 Dietary counseling and surveillance; Z82.3 Family history of stroke
CPT/HCPCS: 36415; 70450; 70460; 70496; 70498; 70553; 71046; 80048; 80053; 80061; 80306; 80320; 80329; 81001; 81241; 82550; 82728; 83036; 83520; 83615; 84145; 84443; 84484; 85025; 85300; 85301; 85379; 85610; 85652; 85730; 86038; 86140; 86225; 86431; 86780; 87635; 93005; 93270; 93306; 93312; 93320; 93325; 93970; 96365; 96375; 99285

== ENCOUNTER → 2024-12-18 | Outpatient (CLI) | payer OTHER ==
[2024-12-18 11:14] LABS: African American GFR (CKD) >90 (>60 ml/min/1.73 sqM); Blood Urea Nitrogen 10 mg/dL (7-17); Non-African American GFR(CKD) >90 (>60 ml/min/1.73 sqM)
--- NOTE | 2024-12-18 15:40 | CT ---
EXAMINATION TYPE: CT abdomen pelvis w con CT DLP: 1553 mGycm, Automated exposure control for dose reduction was used. DATE OF EXAM: 12/18/2024 12:42 PM COMPARISON: None. CLINICAL INDICATION:Female, 54 years old with history of R10.84 ABD PAIN K92.1 MELENA R19.4 R14.0; co nstipation with rectal bleeding. TECHNIQUE: Standard CT of the abdomen and pelvis following the administration of 100 cc of Isovue 3 00 IV contrast material and oral contrast. Coronal and sagittal reformats were performed. FINDINGS: LOWER CHEST: Unremarkable ABDOMEN LIVER: Unremarkable GALLBLADDER AND BILE DUCTS: Cholelithiasis. No biliary ductal dilatation. PANCREAS: Unremarkable. SPLEEN: Unremarkable. ADRENAL GLANDS: Unremarkable. KIDNEYS AND URETERS: No evidence of hydronephrosis or renal calculus. The kidneys enhance symmetrical ly. Contrast is demonstrated within both collecting systems an proximal ureters on the delayed phase. Duplex right collecting system. PELVIS BLADDER: Underdistended but grossly unremarkable. REPRODUCTIVE: Unremarkable. ABDOMEN & PELVIS STOMACH AND BOWEL: Stomach and duodenum are unremarkable. Enteric contrast reaches the mid to distal small bowel. The appendix is within normal limits. Circumferential wall thickening with fat stranding involving the sigmoid colon and rectum. No corresponding hyperdense material within this region. The re are regions of circumferential wall thickening involving the small bowel within the right lower qu adrant measuring up to 9 mm in thickness. Small bowel feces sign without dilated small bowel. No evid ence of bowel obstruction. PERITONEUM: No evidence of pneumoperitoneum or free fluid. VASCULATURE: Mild atherosclerotic calcifications are present throughout the abdominal aorta and its b ranches. No evidence of aortic aneurysm. MUSCULOSKELETAL: No acute osseous abnormalities. Degenerative changes of the pubic symphysis. Degener ative disc disease most prominent at L4-L5. LYMPH NODES: No evidence for lymphadenopathy. SOFT TISSUE/ABDOMINAL WALL: Unremarkable IMPRESSION: 1. Circumferential wall thickening with fat stranding involving the rectum and sigmoid colon. Additio nal regions of circumferential wall thickening involving the small bowel within the right lower quadr ant. Findings suggest an infectious/inflammatory proctosigmoiditis and enteritis. Raises concern for possible Crohn's disease due to distribution. Additionally there is small bowel feces sign without di lated small bowel. Findings suggest slow bowel transit. 2. Cholelithiasis. [facility], , 12/18/2024 3:38 PM
== END | disposition home or self-care (01) ==
LOC: RADCTMAIN 10:59
PROVIDERS: ATTEND Family Medicine
DX: K80.20 Calculus of gallbladder without cholecystitis without obstruction (principal); K92.1 Melena
CPT/HCPCS: 82565; 84520; 74177; 36415; Q9967